=== PATIENT | male | born 1960 | race Caucasian/White ===

== ENCOUNTER 2016-07-14 11:38 | Emergency (ER) | payer BC ==
[~2016-07-14] VITALS: Ht 188 cm; Wt 102.0 kg
[~2016-07-14 11:38] MED LIST: LEVAQUIN500 MG PO; PERCOCET 10/1 TABLET PO
[2016-07-14 14:23] LABS: EOSINOPHIL (%) 0.6 % (0-5); HEMATOCRIT 46.6 % (38.0-50.0); IMMATURE GRANULOCYTE (%) 0.4 % (0.0-0.7); INSTRUMENT ABS NEUTROPHIL CT 4.6 K/uL; LYMPHOCYTE COUNT 1.7 K/uL (1.0-2.8); MCH 31.4 PG (29.0-34.0); MCV 89.8 FL (86-99); MEAN PLAT.VOLUME 10.7 uM^3 (9.0-12.4); MONOCYTE COUNT 0.6 K/uL (0-0.8); NEUTROPHIL (%) 66.3 % (45-76); NEUTROPHIL COUNT 4.6 K/uL (1.8-6.4); PLATELET COUNT 189 K/uL (156-360); RBC DIS.WIDTH-CV 11.8 % (11.8-14.6); RBC DIS.WIDTH-SD 38.5 % (39-53); RED BLOOD COUNT 5.19 M/uL (4.00-5.50)
[2016-07-14 14:31] LABS: CHLORIDE 104 mEq/L (99-109); POTASSIUM 4.2 mEq/L (3.7-5.4); SODIUM 136 mEq/L (136-147)
[2016-07-14 14:33] LABS: GLUCOSE 90 mg/dL (70-99)
[2016-07-14 14:34] LABS: ANION GAP 10 MEQ/L (2-14)
[2016-07-14 14:35] LABS: TOTAL BILIRUBIN 0.7 mg/dL (0.0-1.0)
[2016-07-14 14:37] LABS: ALKALINE PHOSPHATASE 54 IU/L (3-129); GFR ESTIMATE (CALCULATED) > 59 mL/min/
[2016-07-14 14:38] LABS: UREA NITROGEN (BUN) 9 mg/dL (9-23)
[2016-07-14] MEDS ORDERED: AUGMENTIN875 MG PO (17:04)
[2016-07-14 17:21] VITALS: BP 146/105
== END 2016-07-14 17:22 | disposition home or self-care (01) ==
LOC: EME 11:38 → EXP 11:38
PROVIDERS: Physician Assistant
DX: L03.317 Cellulitis of buttock (principal); Z86.19 Personal history of other infectious and parasitic diseases
CPT/HCPCS: 74177; 76882; 80053; 85025; 99281; 99285; J7120